=== PATIENT | female | born 1990 | race Caucasian/White ===

== ENCOUNTER 2022-09-13 12:21 | Outpatient (REF) | payer OTHER, SELFPAY ==
[2022-09-13 16:46] LABS: Hematocrit 43.3 % (37.0-47.0); Hemoglobin 14.1 g/dl (12.0-16.0); Mean Corpuscular HGB Conc 32.6 g/dl (31.0-35.0); Mean Corpuscular Hemoglobin 28.7 pg (27.0-33.0); Mean Corpuscular Volume 88.2 fL (80.0-98.0); Mean Platelet Volume 12.1 fL (9.4-12.3); Platelet Count 194 X10*3/uL (160-400); Red Blood Count 4.91 X10*6/uL (4.20-5.50); Red Cell Distribution Width 12.9 % (11.0-16.0); White Blood Count 9.3 X10*3/uL (4.8-10.8)
== END 2022-09-13 12:22 | disposition home or self-care (01) ==
LOC: HO.HMGCLDS 12:21
PROVIDERS: Visit Provider Internal Medicine
DX: J06.9 Acute upper respiratory infection, unspecified (principal)
CPT/HCPCS: 36415; 85027

== ENCOUNTER 2023-09-10 09:13 | Emergency (ER) | payer OTHER, SELFPAY ==
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
[2023-09-10 09:27] VITALS: BP 128/82
[2023-09-10 09:30] VITALS: BP 134/80; PULSE 88; RESP 16; TEMP 37.2; O2SAT 95; BMI 30.7
[2023-09-10] MEDS: Acetaminophen 325 MG TABLET 650 MG PO (10:46)
[2023-09-10 13:05] VITALS: BP 105/72; PULSE 77; RESP 16; TEMP 36.2; O2SAT 97
== END 2023-09-10 13:11 | disposition home or self-care (01) ==
PROVIDERS: Emergency Provider Emergency Medicine; PCP Internal Medicine
DX: S16.1XXA Strain of muscle, fascia and tendon at neck level, initial encounter (principal); V43.62XA Car passenger injured in collision with other type car in traffic accident, initial encounter; Y93.89 Activity, other specified; Y92.411 Interstate highway as the place of occurrence of the external cause; Y99.9 Unspecified external cause status
CPT/HCPCS: 72125; 99284

== ENCOUNTER 2024-05-16 08:32 | Outpatient (AMB) | payer OTHER, SELFPAY ==
--- NOTE | 2024-05-16 08:35 | AM.OFFWIN_ITS ---
Intake Vital Signs 05/16/24 08:36 Height 5 ft 4 in Weight 179 lb BMI 30.7 BP 122/80 Blood Pressure Location Lt brachial Position Sitting Pulse 69 Pulse Source Pulse Oximeter Temp 98.4 F Temp Source Oral Pulse Oximetry (%) 98 Oxygen Delivery Method Room Air Intake Visit Reasons: EP-cough, congestion Intake Note: Patient here for cough and congestion that has been present for about a month on and off. Patient Tobacco Use Status: Never used Tobacco Allergies No Known Allergies Allergy (Verified 05/16/24 08:37) Do you need a note to return to daycare/school/sports/work: No HPI HPI Comments History of Present Illness Details This is a 33-year-old female with no stated past medical history presenting for evaluation of a cough and sinus pressure that she has had for the past 1 month. Patient states that her cough is worse at night however has become additionally more bothersome during the day over the past 2 days. Patient denies having any fevers, chills sore throat, chest pain or shortness of breath. Patient also denies having any recent sick contacts. Patient has not taken any [id number] medication for treatment of her symptoms. [facility] Social History Alcohol intake: current Alcohol intake frequency: holidays/special occasions only Alcohol type: wine Patient Tobacco Use Status: Never used Tobacco Review of Systems Const All systems reviewed & are unremarkable except as noted in HPI and below Denies body aches, Denies chills, Denies fever(s) and Denies weakness Eyes Reports no additional complaints ENT Denies otalgia, Denies facial pain, Reports nasal congestion, Reports sinus pressure and Denies sore throat Card Reports no additional complaints and Denies dyspnea Resp Reports chest congestion, Reports cough and Denies dyspnea GI Reports no additional complaints Reports no additional complaints Skin/Breast Reports system reviewed and no additional complaints, except as documented Neuro Reports no additional complaints and Denies weakness Psych Reports no additional complaints Endo Reports no additional complaints Physical Exam Vital Signs: Last Vital Signs Temp 98.4 F 05/16/24 08:36 Pulse 69 05/16/24 08:36 BP 122/80 05/16/24 08:36 Pulse Ox 98 05/16/24 08:36 Oxygen Delivery Method Room Air 05/16/24 08:36 BMI result Body Mass Index 30.7 Const General: cooperative, healthy appearing, comfortable, no acute distress, well developed, alert and awake Nutritional Appearance: average body habitus Orientation/consciousness: patient oriented x3 Limitations: no limitations HEENT Head: Yes normal to inspection and Yes normocephalic Ears: hearing grossly normal bilaterally, external ears normal, EAC's normal and TM abnormal bulging bilateral; not erythematous and with no fluid behind the TM General nose exam: Normal external nose present Face and sinus: Yes normal facial exam and Yes sinuses nontender Mouth: moist mucous membranes Throat: Yes postnasal drainage and Yes other (There is no erythema, edema or exudates of the posterior oropharynx) Eyes General: appearance normal, both eyes and all related structures Neck Lymphatic: no lymphadenopathy noted Resp Effort & Inspection: normal respiratory effort, able to speak in complete sentences, no audible wheezes, no respiratory distress and no use of accessory muscles Auscultation: clear to auscultation bilaterally Cardio Rate: regular rate Rhythm: regular rhythm Skin General skin exam: no rashes or lesions noted Neuro General: patient oriented x3 Psych Appearance: grossly normal Mental Status: mental status grossly normal Insight: Good insight present (Psych) Judgement: Good judgement present (Psych) Assessment & Plan Assessment & Plan (1) Allergic rhinitis: Comment: There is no clinical evidence of otitis media or a bacterial sinusitis and the patient's lungs are clear to auscultation bilaterally; imaging will be deferred at this time. Code(s): J30.9 - Allergic rhinitis, unspecified Qualifiers: Allergic rhinitis trigger: unspecified Allergic rhinitis seasonality: seasonal Qualified Code(s): J30.2 - Other seasonal allergic rhinitis Plan: Loratadine once daily times 30 days and Flonase intranasal steroid will be prescribed. Patient is instructed to follow up with her primary care provider within 10-14 days if her symptoms are not improving. Respiratory panel is pending. Orders: Orders SARS-CoV2/FLU/RSV Today J06.9 - Acute upper respiratory infection, unspecified Medications: New loratadine 10 mg PO DAILY 30 tabs 0RF fluticasone propionate 50 mcg/actuation (Flonase Allergy Relief) administer into each nostril 1 spray intranasal DAILY 16 grams 0RF Coding Level of Care Code Est Pt Level 3 (11862) Diagnoses Seasonal allergic rhinitis, unspecified trigger J30.2 Allergic rhinitis trigger: unspecified Allergic rhinitis seasonality: seasonal Time Spent (min) 20
[2024-05-16 08:36] VITALS: BP 122/80; PULSE 69; TEMP 36.9; O2SAT 98; BMI 30.7
== END 2024-05-16 09:05 | disposition home or self-care (01) ==
PROVIDERS: PCP Internal Medicine; Visit Provider Physician Assistant
DX: J30.2 Other seasonal allergic rhinitis (principal)

== ENCOUNTER 2024-05-16 08:32 | Outpatient (REF) | payer OTHER, SELFPAY ==
[2024-05-16 11:09] LABS: Influenza A PCR NEGATIVE (Negative); Influenza B PCR NEGATIVE (Negative); Resp Syncy Virus RNA Qual PCR NEGATIVE (Negative); SARS COV2 PCR INHOUSE NEGATIVE (Negative)
== END 2024-05-16 08:33 | disposition home or self-care (01) ==
LOC: HO.LAB 08:32
PROVIDERS: PCP Internal Medicine; Visit Provider Physician Assistant
DX: J06.9 Acute upper respiratory infection, unspecified (principal); J30.2 Other seasonal allergic rhinitis
CPT/HCPCS: 0241U; 99212

== ENCOUNTER 2024-05-20 08:24 | Outpatient (AMB) | payer OTHER, SELFPAY ==
--- NOTE | 2024-05-20 08:26 | AM.OFFWIN_ITS ---
Intake Vital Signs 05/20/24 08:28 Height 5 ft 4 in Weight 188 lb BMI 32.3 BP 130/80 Blood Pressure Location Lt brachial Position Sitting Pulse 74 Pulse Source Pulse Oximeter Pulse Oximetry (%) 98 Oxygen Delivery Method Room Air Intake Visit Reasons: EP-rt side rib pain Intake Note: patient here for right sided rib pain that has been present since Sunday and the pain has worsened and has some slight SOB. Patient Tobacco Use Status: Never used Tobacco Allergies No Known Allergies Allergy (Verified 05/20/24 08:28) Do you need a note to return to daycare/school/sports/work: No HPI HPI Comments History of Present Illness Details 33 y/o female patient who presents to [facility] in clinic c/o for right sided rib/chest wall pain that has been present since Sunday and the pain has worsened and has some slight SOB. Denies injury or trauma. [facility] Medical History (Updated 05/20/24 @ 08:52 by Uzma Smyth NP) Chest wall contusion Social History Alcohol intake: current Alcohol intake frequency: holidays/special occasions only Alcohol type: wine Patient Tobacco Use Status: Never used Tobacco Review of Systems Const All systems reviewed & are unremarkable except as noted in HPI and below Physical Exam Vital Signs: Last Vital Signs Pulse 74 05/20/24 08:28 BP 130/80 05/20/24 08:28 Pulse Ox 98 05/20/24 08:28 Oxygen Delivery Method Room Air 05/20/24 08:28 BMI result Body Mass Index 32.3 Const General: cooperative; No comfortable Nutritional Appearance: overweight Orientation/consciousness: patient oriented x3 HEENT Head: Yes normocephalic Ears: external ears normal and TM's normal bilaterally General nose exam: Abnormal mucous membranes and turbinates present boggy and erythematous Face and sinus: Yes sinuses nontender Mouth: moist mucous membranes Throat: Yes postnasal drainage Chest Chest palpation & inspection: localized rib tenderness with anteroposterior compression and tenderness (right sided tenderness to touch) rib Resp Effort & Inspection: normal respiratory effort, able to speak in complete [place], no audible wheezes and no cough Auscultation: clear to auscultation bilaterally, no crackles, no rales, no rhonchi and no wheezes Cardio Heart sounds: S1 normal heart sound present and S2 normal heart sound present Neuro General: patient oriented x3, gait normal and moves all extremities Psych Speech and movement: Normal speech and movement present Assessment & Plan Assessment & Plan (1) Chest wall contusion: Code(s): S20.219A - Contusion of unspecified front wall of thorax, initial encounter Qualifiers: Encounter type: initial encounter Laterality: right Qualified Code(s): S20.211A - Contusion of right front wall of thorax, initial encounter Plan: Ordered chest xray to r/o Rib Fracture or any Abnormalities. NSAIDs for pain relief Heat/Ice Orders: Orders XR ribs RT min 3V w CXR1V Today S20.211A - Contusion of right front wall of thorax, initial encounter Medications: New ibuprofen 800 mg PO Q8H 20 tabs 0RF PAIN S20.211A - Contusion of right front wall of thorax, initial encounter lidocaine 5% leave on most painful area for up to 12 hrs 1 patch topical DAILY 30 ea 0RF S20.211A - Contusion of right front wall of thorax, initial encounter Coding Level of Care Code Est Pt Level 4 (92675) Diagnoses Contusion of right chest wall, initial encounter S20.211A Encounter type: initial encounter Laterality: right Time Spent (min) 20
[2024-05-20 08:28] VITALS: BP 130/80; PULSE 74; O2SAT 98; BMI 32.3
== END 2024-05-20 09:17 | disposition home or self-care (01) ==
PROVIDERS: PCP Internal Medicine; Visit Provider Nurse Practitioner Family
DX: S20.211A Contusion of right front wall of thorax, initial encounter (principal)

== ENCOUNTER → 2024-05-20 08:24 | Outpatient (BNVA) | payer OTHER, SELFPAY | PROVIDERS: PCP Internal Medicine ==

== ENCOUNTER 2024-05-20 08:57 | Outpatient (REF) | payer OTHER, SELFPAY ==
--- NOTE | ~2024-05-20 | XR_ITS ---
EXAMINATION: XR RIBS, RIGHT CLINICAL INFORMATION: Contusion of right frontal wall of the thorax. Right chest wall tenderness. Shortness of breath. Pain with breathing. COMPARISON: None available. TECHNIQUE: 3 views of the right ribs and frontal view of the chest were obtained. Study was performed with a BB overlying the region of pain as indicated by the patient. FINDINGS: Osseous structures appear unremarkable. Ribs appear intact. No fractures are identified. Lungs appear clear. No consolidation, pneumothorax, or pleural effusion appreciated. The cardiomediastinal silhouette and pulmonary vasculature appear unremarkable. XR/XR ribs RT min 3V w CXR1V IMPRESSION: Unremarkable examination. Electronically signed by: Doc Ponce MD 05/20/2024 10:18 AM EDT RP
== END 2024-05-20 08:58 | disposition home or self-care (01) ==
LOC: HO.HMGCX 08:57
PROVIDERS: PCP Internal Medicine; Visit Provider Nurse Practitioner Family
DX: S20.211A Contusion of right front wall of thorax, initial encounter (principal)
CPT/HCPCS: 71101; 99212